=== PATIENT | male | born 1970 | race Caucasian/White ===

== ENCOUNTER 2019-04-12 21:35 | Emergency (ER) | payer SELFPAY ==
[~2019-04-12] VITALS: Ht 175.3 cm; Wt 79.0 kg
[2019-04-12 21:45] VITALS: BP 134/99
== END 2019-04-13 00:16 | disposition home or self-care (01) ==
LOC: ER 21:35
DX: F10.129 Alcohol abuse with intoxication, unspecified (principal); Y90.9 Presence of alcohol in blood, level not specified
CPT/HCPCS: 99283